=== PATIENT | female | born 1960 | race Caucasian/White ===

== ENCOUNTER → 2018-01-12 | Outpatient (CLI) | payer OTHER | END | disposition home or self-care (01) | LOC: SURG 15:52 | PROVIDERS: ATTEND Anesthesiology Pain Medicine | DX: M47.816 Spondylosis without myelopathy or radiculopathy, lumbar region (principal); M54.16 Radiculopathy, lumbar region; M25.552 Pain in left hip; E66.9 Obesity, unspecified; M19.90 Unspecified osteoarthritis, unspecified site; Z79.899 Other long term (current) drug therapy | CPT/HCPCS: 99214 ==